=== PATIENT | female | born 1975 | race Caucasian/White ===

== ENCOUNTER 2024-08-26 06:15 | Day surgery (SDC) | payer OTHER, SELFPAY | END 2024-08-26 10:48 | disposition home or self-care (01) | LOC: GI 06:15 | PROVIDERS: ATTENDING PHYSICIAN Internal Medicine | DX: Z12.11 Encounter for screening for malignant neoplasm of colon (principal); D12.2 Benign neoplasm of ascending colon; K64.9 Unspecified hemorrhoids; Z83.719 Family history of colon polyps, unspecified; Z80.0 Family history of malignant neoplasm of digestive organs | CPT/HCPCS: 45385; 88305 ==